=== PATIENT | male | born 1965 | race Caucasian/White ===

== ENCOUNTER 2020-03-04 12:22 | Inpatient (IN) | payer OTHER ==
[2020-03-04] MEDS ORDERED: Magnesium 2 GM/50 ML BAG (IN WATER) ONE (12:36)
[2020-03-04] MEDS ORDERED: methylPREDNISolone Sod Succ/PF 125 MG/2 ML VIAL ONE (12:36)
[2020-03-04 13:26] LABS: #Eosinphils 0.5 thou/uL (0.0-0.7); #Lymphocytes 1.7 thou/uL (1.20-3.40); #Monocytes 1.1 thou/uL (0.11-0.59); #Neutrophils 7.8 thou/uL (1.40-6.50); %Basophils 0.4 % (0.0-1.0); %Eosinophils 4.3 % (0.0-10.0); %Lymphocytes 15.1 % (21.0-51.0); %Neutrophils 70.3 % (42.0-75.0); Hemoglobin 15.6 g/dL (14.0-18.0); Mean Corpuscular HGB CONC 32.1 g/dL (32.0-36.0); Mean Corpuscular Hemoglobin 29.2 pg (27.0-31.0); Mean Corpuscular Volume 90.9 fL (78.0-98.0); Mean Platelet Volume 9.3 fL (7.4-10.4); Platelet Count 184 thou/uL (130-400); RBC Distribution Width 12.1 % (11.5-14.5); Red Blood Cell (RBC) Count 5.36 mill/uL (4.70-6.10); White Blood Cell (WBC) Count 11.2 thou/uL (4.8-10.8)
[2020-03-04 13:49] LABS: ALT (SGPT) 29 U/L (8-55); AST (SGOT) 44 U/L (5-34); Albumin 3.9 g/dL (3.5-5.0); Alkaline Phosphatase 84 U/L (40-110); Anion Gap 15 mmol/L (10-20); BUN (Urea Nitrogen) 13 mg/dL (8.4-25.7); Bilirubin, Total 0.4 mg/dL (0.2-1.2); CK (CPK) 105 U/L (30-200); Calc. Creatinine Clearance 0 mL/min (70-130); Carbon Dioxide 25 mmol/L (22-29); Chloride 101 mmol/L (98-107); Estimated GFR-MDRD Greater than 90; Globulin 4.5 g/dL (2.4-3.5); Glucose 114 mg/dL (70-105); Potassium 4.7 mmol/L (3.5-5.1); Protein, Total 8.4 g/dL (6.0-8.3); Sodium 136 mmol/L (136-145)
[2020-03-04] MEDS ORDERED: Albuterol 200 PUFF (6.7GM INHALER) ONE (14:02)
--- NOTE | 2020-03-04 14:23 | PDOC.FPRHP ---
- History of Present Illness Chief Complaint: Shortness of breath History of Present Illness: Pt is a 54 yo male with PMH significant for COPD, hx of pneumonia x 3, HTN, Hepatitis C who presented from the [facility] secondary to shortness of breath. The pt woke with a fever and what he suspected was a COPD exacerbation. He was given tylenol then transferred to the emergency department. He was tested for COVID 3 weeks ago and was negative but his bunk mate tested positive for COVID about 1 week ago. ED Course: 2g Magnesium sulfate, 125mg methylprednisolone, Proventil HFA, 2 inhalation - History PMHx: HTN, HepC, COPD, HLD PSHx: Right shoulder, b/l ankle and knee ortho repair from trauma FHx: HTN Social:30 pack year history, quit 4 years ago. 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 - Review of Systems General: reports: fever/chills ENT: denies: nasal congestion, rhinorrhea Respiratory: reports: cough, shortness of breath, exercise intolerance Cardiovascular: denies: chest pain, edema Gastrointestinal: denies: nausea, vomiting, diarrhea, constipation, GI bleeding Genitourinary: denies: dysuria, discharge Skin: denies: rashes, lesions Musculoskeletal: denies: pain, tenderness, swelling, arthritis/arthralgias Neurological: denies: seizure, weakness - Vital signs BP: 141/88, Pulse: 77, Resp: 28, Pain: 0, O2 sat: 92, Time: 03/04/2020 13:36. - Physical Exam Constitutional: NAD, awake, alert and oriented, well developed HEENT: normocephalic and atraumatic, PERRLA, EOMI Neck: supple, FROM, trachea midline Heart: RRR, normal S1/S2, no murmurs/rubs/gallops -Lungs: bilateral diffuse inspiratory crackles Abdomen: soft, non-tender, no masses/distention Musculoskeletal: ROM grossly normal Neurological: no focal deficit, CN II-XII intact Skin: no rash/lesions, good turgor, capillary refill <2 seconds -Heme/Lymphatic: multiple tattoos Psychiatric: normal mood and affect, good judgment and insight FMR H&P: Results - Labs Result Diagrams: 03/04/20 13:14 03/04/20 13:13 Lab results: WBC 11.2 thou/uL (4.8-10.8) H 03/04/20 13:14 Hgb 15.6 g/dL (14.0-18.0) 03/04/20 13:14 Hct 48.7 % (42.0-52.0) 03/04/20 13:14 MCV 90.9 fL (78.0-98.0) 03/04/20 13:14 Plt Count 184 thou/uL (130-400) 03/04/20 13:14 Neutrophils % 70.3 % (42.0-75.0) 03/04/20 13:14 Sodium 136 mmol/L (136-145) 03/04/20 13:13 Potassium 4.7 mmol/L (3.5-5.1) 03/04/20 13:13 Chloride 101 mmol/L (98-107) 03/04/20 13:13 Carbon Dioxide 25 mmol/L (22-29) 03/04/20 13:13 BUN 13 mg/dL (8.4-25.7) 03/04/20 13:13 Creatinine 0.87 mg/dL (0.7-1.3) 03/04/20 13:13 Glucose 114 mg/dL (70-105) H 03/04/20 13:13 Calcium 9.0 mg/dL (7.8-10.44) 03/04/20 13:13 Total Bilirubin 0.4 mg/dL (0.2-1.2) 03/04/20 13:13 AST 44 U/L (5-34) H 03/04/20 13:13 ALT 29 U/L (8-55) 03/04/20 13:13 Alkaline Phosphatase 84 U/L (40-110) 03/04/20 13:13 Creatine Kinase 105 U/L (30-200) 03/04/20 13:13 Serum Total Protein 8.4 g/dL (6.0-8.3) H 03/04/20 13:13 Albumin 3.9 g/dL (3.5-5.0) 03/04/20 13:13 - Radiology Interpretation Chest x-ray Status: image reviewed by me, report reviewed by me Additional comment: diffuse patchy infiltrates bilateral FMR H&P: A/P - Problem List (1) Person under investigation for COVID-19 Current Visit: Yes Status: Acute Code(s): Z20.828 - CONTACT W AND EXPOSURE TO OTH VIRAL COMMUNICABLE DISEASES (2) COPD exacerbation Current Visit: Yes Status: Acute Code(s): J44.1 - CHRONIC OBSTRUCTIVE PULMONARY DISEASE W (ACUTE) EXACERBATION (3) Hypertension Current Visit: Yes Status: Acute Code(s): I10 - ESSENTIAL (PRIMARY) HYPERTENSION (4) Hepatitis C Current Visit: Yes Status: Acute Code(s): B19.20 - UNSPECIFIED VIRAL HEPATITIS C WITHOUT HEPATIC COMA - Plan Pt is a 54 yo male here for worsening shortness of breath: Acute hypoxic respiratory failure 2/2 suspected COVID PNA - 70% O2 sat, requiring 6L N.C. - pending COVID swab - ABG: Mild respiratory acidosis: pH 7.3/pCO2 57.9/pO2 88.7. Breathing status stable, continue nasal cannula - Start azithromycin - Ddimer to trend - CXR with bilateral patchy infiltrates - COVID precautions - Admit to IMCU to monitor, will initiate convalescent plasma process - Pulm consulted COPD exacerbation possibly 2/2 COVID - continue steroids and ventolin - do not administer duonebs to decrease aerosolizing possible COVID cHTN - monitor Hep C - MD aware HLD - Stable VTE: lovenox 40mg BID Diet: HH Code Status: Full Dispo: admit to inpt IMCU Addendum - Attending - Attending Attestation Date/Time: 03/04/20 1620 I personally evaluated the patient and discussed the management with Dr. Arias. I agree with the History, Examination, Assessment and Plan documented above with any addition or exceptions noted below. Patient here with 2 day history of increasing malaise and increasing shortness of breath. Chronically dyspneic on exertion due to untreated COPD, but worsened. Tested for COVID 3 weeks ago and negative. Possible exposure in cellmate recently. He was hypoxic at [facility] that improved with 6L by NC. Currently sats are 95% and patient in no respiratory distress. On exam, he is sweaty, mild increased respiratory effort. Lungs with diffuse fine rales but difficult exam due to stethoscope quality, heart RRR, abdomen soft. CXR shows bilateral interstitial infiltrates, no focal consolidation. Labs show mild relative lymphopenia. D dimer with mild elevation. ABG ok on 6L. Patient will be admitted to IMCU for close respiratory monitoring. Likely COVID pneumonia with hypoxic resp failure but will confirm with repeat swab. Rocephin and Azithro. Consider tocilizumab if worsens. Daily CXR, Ddimer. Consider convalescent plasma. Will consult Pulm. Breathing treatments for COPD and consider steroids.
--- NOTE | 2020-03-04 15:33 | RAD ---
AP CHEST: 03/04/20 HISTORY: Dyspnea. COVID exposure. No comparison. Cardiomegaly. There are bilateral other diffuse hazy ground glass infiltrates seen. Ground glass opac ities are seen in the right upper and right lower lobe and there is diffuse ground glass opacity in t he peripheral left upper mid lung. There is evidence of bilateral effusions. Mild vascular congestion with cardiomegaly. IMPRESSION: Cardiomegaly with vascular congestion. There are bilateral ground glass infiltrates which could repre sent edema and/or viral pneumonitis. There are small bilateral effusions. Superimposed edema may also be present. POS: AGW
[2020-03-04 15:55] LABS: Analyzer IN Cardio ER; Base Excess (BEa) 3.5 mEq/L (-2.0 to +3.0); CO2 Tension 57.9 mmHg (35.0-45.0); Calcium, Ionized (arterial) 1.18 mmol/L (1.12-1.30); Carboxyhemoglobin (COHb) 0.5 gm% (0.0-3.0); Hemoglobin (Hb) 16.9 g/dL (14.0-18.0); O2 Tension (PaO2), arterial 88.7 mmHg (80.0-100.0); Potassium - ABG Lab 5.31 mmol/L (3.70-5.30); pH, Arterial 7.35 (7.35-7.45)
[2020-03-04 15:58] LABS: ALV-art Gradient -11.345 (0-20); Puncture Site RR
[2020-03-04] MEDS ORDERED: PROVENTIL INHALER 6.7 G (200 INHALATIONS) INH PRN (16:34)
[2020-03-04 17:12] VITALS: BMI 37.0
[2020-03-04] MEDS ORDERED: Azithromycin 250 MG TAB PO SCH (17:45)
[2020-03-04] MEDS ORDERED: cefTRIAXone\\ROCEPHIN 1 GM in Sodium Chloride 0.9% 100 ML IVPB SCH (18:00)
[2020-03-04] MEDS: Atorvastatin Calcium 40 MG TAB PO SCH (19:35)
[2020-03-04] MEDS: Enoxaparin Sodium 40 MG/0.4 ML SYRINGE SC SCH (19:36)
[2020-03-04] MEDS: Albuterol 200 PUFF (6.7GM INHALER) INH SCH ×2 (19:55→23:12)
[2020-03-05] MEDS: Albuterol 200 PUFF (6.7GM INHALER) INH SCH ×6 (02:30→22:30)
[2020-03-05 04:13] LABS: Band 8 % (5-11); Hemoglobin 14.7 g/dL (14.0-18.0); Lymphocytes 16 % (21-51); MDiff Complete? YES; Mean Corpuscular HGB CONC 32.2 g/dL (32.0-36.0); Mean Corpuscular Hemoglobin 29.1 pg (27.0-31.0); Mean Corpuscular Volume 90.4 fL (78.0-98.0); Mean Platelet Volume 8.8 fL (7.4-10.4); Metamyelocyte 1 % (0-0); Monocytes 10 % (0-10); Neutrophil 65 % (42-75); Platelet Count 182 thou/uL (130-400); Platelet Morphology Comment Appears Adequate; RBC Morphology Normal; Red Blood Cell (RBC) Count 5.07 mill/uL (4.70-6.10); White Blood Cell (WBC) Count 8.6 thou/uL (4.8-10.8)
[2020-03-05 04:15] LABS: ALT (SGPT) 28 U/L (8-55); AST (SGOT) 32 U/L (5-34); Albumin 3.7 g/dL (3.5-5.0); Alkaline Phosphatase 70 U/L (40-110); Anion Gap 11 mmol/L (10-20); BUN (Urea Nitrogen) 20 mg/dL (8.4-25.7); Bilirubin, Total 0.4 mg/dL (0.2-1.2); Calc. Creatinine Clearance 184 mL/min (70-130); Carbon Dioxide 27 mmol/L (22-29); Chloride 100 mmol/L (98-107); Estimated GFR-MDRD Greater than 90; Globulin 4.2 g/dL (2.4-3.5); Glucose 133 mg/dL (70-105); Potassium 4.6 mmol/L (3.5-5.1); Protein, Total 7.9 g/dL (6.0-8.3); Sodium 133 mmol/L (136-145)
[2020-03-05 05:45] LABS: Troponin I 0.036 ng/mL (< 0.028)
--- NOTE | 2020-03-05 06:39 | PDOC.FM ---
- Subjective Subjective: NAEO. Reports breathing improved. Coughed up sputum which helped. No swelling in legs. - Objective MAR Reviewed: Yes Vital Signs & Weight: Vital Signs (12 hours) Temp Pulse Ox 03/05/20 03:08 98.4 F 03/05/20 00:00 94 L 03/04/20 23:00 98.3 F 03/04/20 20:00 95 Weight Weight 117.208 kg Most Recent Monitor Data Heart Rate from ECG 85 NIBP 107/69 NIBP BP-Mean 81 Respiration from ECG 23 SpO2 90 Result Diagrams: 03/05/20 03:38 03/05/20 03:38 Phys Exam - Physical Examination Constitutional: NAD HEENT: PERRLA, moist MMs Neck: full ROM inspiratory crackles diffusely Cardiovascular: RRR, no significant murmur Gastrointestinal: soft, non-tender, no distention Musculoskeletal: no edema, pulses present Neurological: non-focal, moves all 4 limbs Dx/Plan (1) Person under investigation for COVID-19 Code(s): Z20.828 - CONTACT W AND EXPOSURE TO OTH VIRAL COMMUNICABLE DISEASES Status: Acute (2) COPD exacerbation Code(s): J44.1 - CHRONIC OBSTRUCTIVE PULMONARY DISEASE W (ACUTE) EXACERBATION Status: Acute (3) Hypertension Code(s): I10 - ESSENTIAL (PRIMARY) HYPERTENSION Status: Acute (4) Hepatitis C Code(s): B19.20 - UNSPECIFIED VIRAL HEPATITIS C WITHOUT HEPATIC COMA Status: Acute - Plan Plan: Pt is a 54 yo male admitted for AHRF 2/2 viral PNA, COVID pui Acute hypoxic respiratory failure 2/2 suspected COVID PNA - 3L N.C., COVID swab pending - Continue azithromycin, rocephin, steroids - Pulm following - Continue supportive care, wean O2 as tolerated. COPD exacerbation possibly 2/2 COVID - continue steroids and ventolin - abx Indeterminate troponin - No chest pain, EKG WNL, likely demand cHTN - Stable, monitor - Continue home meds Hep C - MD aware HLD - Stable, home med CHF -Stable -Continue home meds Hypothyroidism -Stable, home meds Bicuspid aortic valve -OP cardiology f/u VTE: lovenox 40mg BID Diet: HH Code Status: Full Addendum - Attending - Attending Attestation Date/Time: 03/05/20 1252 I personally evaluated the patient and discussed the management with Dr. Arias. I agree with the History, Examination, Assessment and Plan documented above with any addition or exceptions noted below.
[2020-03-05] MEDS ORDERED: Spironolactone 25 MG TAB PO SCH (08:00)
--- NOTE | 2020-03-05 08:10 | RAD ---
SINGLE VIEW OF THE CHEST: COMPARISON: 03/04/2020. HISTORY: Bilateral infiltrates. Suspecting COVID pneumonia. FINDINGS: A single view of the chest shows an enlarged but stable cardiomediastinal silhouette. There are stab le multifocal mixed alveolar/interstitial opacities. No pleural effusion is seen. IMPRESSION: Stable exam. POS: WENCESLAO
[2020-03-05] MEDS: Lisinopril 5 MG TAB PO SCH (08:20)
[2020-03-05] MEDS: Spironolactone 25 MG TAB PO SCH ×2 (08:20→17:20)
[2020-03-05] MEDS: predniSONE 20 MG TAB PO SCH (08:20)
[2020-03-05] MEDS: Furosemide 40 MG TAB PO SCH (08:20)
[2020-03-05] MEDS: Aspirin 81 mg Enteric Coated Tablet PO SCH (08:20)
[2020-03-05] MEDS: Azithromycin 250 MG TAB PO SCH (08:21)
[2020-03-05] MEDS: Enoxaparin Sodium 40 MG/0.4 ML SYRINGE SC SCH ×2 (08:21→20:17)
[2020-03-05] MEDS ORDERED: Furosemide 40 MG TAB PO SCH (09:00)
[2020-03-05] MEDS ORDERED: Enoxaparin Sodium 40 MG/0.4 ML SYRINGE SC SCH (09:00)
--- NOTE | 2020-03-05 09:07 | CON ---
DATE OF CONSULTATION: HISTORY OF PRESENT ILLNESS: Yann David is a 54-year-old gentleman, who presented with shortness of breath. [facility] is [facility]. He was tested several weeks ago, which is negative. Repeat coronavirus test pending. He, upon visiting me, said he wants to eat, he is not having much difficulty breathing. ADDITIONAL INFORMATION: PAST MEDICAL HISTORY: COPD, hypertension, hypothyroidism, hepatitis C, and obesity. PREVIOUS SURGERIES: Ankle, knee, shoulder, and some kind of valve problem. SOCIAL HISTORY: Previous tobacco abuse. HOME MEDICINE: 1. Aspirin. 2. Atorvastatin 40. 3. Flovent HFA. 4. Lasix 40. 5. Synthroid 100. 6. Lisinopril 5. 7. Inderal 20. 8. Spiriva inhaler. 9. Spironolactone. In the ER, he is noted to have sat of 89%, though he is much improved right now. Pulse 81, blood pressure 147/87. He was given magnesium 2 g, Solu-Medrol 125, two inhalers of Proventil. Still awaiting results of his COVID test. PHYSICAL EXAMINATION: GENERAL: He is awake, alert, responsive, appears to be in mild distress. VITAL SIGNS: Sats 92%, pulse 80, blood pressure , and respiratory rate 18. CHEST: No wheezing. No crackles. CARDIAC: Normal S1 and S2. No gallops. ABDOMEN: No masses. LABORATORY DATA: His chest x-ray shows bibasilar peripheral infiltrates. White count 11,000, hemoglobin and hematocrit 15 and 48, platelet count is normal. PO2 was 88, pCO2 of 53, pH 7.35 on room air. Lytes are normal. AST is 44. ASSESSMENT: 1. Chronic obstructive pulmonary disease exacerbation, pneumonia, rule out coronavirus. 2. Obesity, hepatitis C, hypertension. I agree with present treatment. If his serology is positive, we may initiate plasma, otherwise neb treatments, steroids, antibiotics. Consultation note, 70 minutes, 50% direct patient care. Job ID: [id number]
--- NOTE | 2020-03-05 09:31 | PRG ---
DATE OF SERVICE: 03/05/2020 SUBJECTIVE: Yann David, this morning, is awake, alert, and responsive. He is giving thumbs up sign. OBJECTIVE: VITAL SIGNS: Sats 93%, pulse 80, blood pressure 114/89, respirations 18. GENERAL: No shortness of breath or cough. CHEST: No wheezing or crackles. CARDIAC: Normal S1, S2. No gallops. ABDOMEN: No masses. ASSESSMENT AND PLAN: positive pneumonia, baseline chronic obstructive pulmonary disease. Zithromax, ceftriaxone, steroids, empiric antibiotics, neb treatments. We will follow. Job ID: [id number]
[2020-03-05 13:05] LABS: SARS-CoV-2 MS2 Positive; SARS-CoV-2 N Gene Positive; SARS-CoV-2 S Gene Positive; SARS-CoV-2 orf1ab Positive
[2020-03-05] MEDS: Atorvastatin Calcium 40 MG TAB PO SCH (20:16)
[2020-03-05] MEDS ORDERED: cefTRIAXone\\ROCEPHIN 1 GM in Sodium Chloride 0.9% 100 ML IVPB SCH (21:00)
[2020-03-06] MEDS: Albuterol 200 PUFF (6.7GM INHALER) INH SCH ×4 (02:30→10:30)
--- NOTE | 2020-03-06 06:01 | PDOC.FM ---
- Subjective Subjective: NAEO. Patient states breathing at rest improved how still SOB when getting up to commode-has been like this prior to admission. Denies fevers, chills. Some mild cough. - Objective MAR Reviewed: Yes Vital Signs & Weight: Vital Signs (12 hours) Temp Pulse Ox 03/05/20 20:00 98.1 F 91 L Weight Weight 117.208 kg Most Recent Monitor Data Heart Rate from ECG 76 NIBP 110/82 NIBP BP-Mean 91 Respiration from ECG 28 SpO2 94 I&O: 03/04/20 03/05/20 03/06/20 06:59 06:59 06:59 Intake Total 830 1660 Output Total 850 3300 Balance -20 -1640 Result Diagrams: 03/06/20 09:46 03/06/20 09:46 Phys Exam - Physical Examination Constitutional: NAD HEENT: PERRLA, moist MMs, sclera anicteric Neck: full ROM end expiratory wheezing Cardiovascular: RRR Gastrointestinal: soft, non-tender, no distention Musculoskeletal: no edema Neurological: non-focal, moves all 4 limbs Dx/Plan (1) Person under investigation for COVID-19 Code(s): Z20.828 - CONTACT W AND EXPOSURE TO OTH VIRAL COMMUNICABLE DISEASES Status: Acute (2) COPD exacerbation Code(s): J44.1 - CHRONIC OBSTRUCTIVE PULMONARY DISEASE W (ACUTE) EXACERBATION Status: Acute (3) Hypertension Code(s): I10 - ESSENTIAL (PRIMARY) HYPERTENSION Status: Acute (4) Hepatitis C Code(s): B19.20 - UNSPECIFIED VIRAL HEPATITIS C WITHOUT HEPATIC COMA Status: Acute - Plan Plan: Pt is a 54 yo male admitted for AHRF 2/2 COVID PNA Acute hypoxic respiratory failure 2/2 COVID19 PNA - 3L N.C., COVID + /12 - Continue azithromycin, rocephin, steroids - Pulm following - Albuterol/Ipratropium q4hr LUIS since wheezing still present - Continue supportive care, wean O2 as tolerated. COPD exacerbation 2/2 COVID19 - continue steroids and ventolin - azithro and rocephin Indeterminate troponin - No chest pain, EKG WNL, likely demand cHTN - Stable, monitor - Continue home meds Hep C - MD aware HLD - Stable, home med CHF -Stable -Continue home meds -Monitor fluid balance Hypothyroidism -Stable, home meds Bicuspid aortic valve -OP cardiology f/u VTE: lovenox 40mg BID Diet: HH Code Status: Full Addendum - Attending - Attending Attestation Date/Time: 03/06/20 3673 I personally evaluated the patient and discussed the management with Dr. Arias. I agree with the History, Examination, Assessment and Plan documented above with any addition or exceptions noted below. Patient overall stable from his COVID pneumonia. Attempt to wean down O2 support. He is stable for transfer to medical floor. Still working on transfer to [facility] as I anticipate he may be a slow wean from O2 therapy.
--- NOTE | 2020-03-06 08:26 | RAD ---
Exam: Chest one view HISTORY:COVID Comparison: 03/05/2020 FINDINGS: Cardiac silhouette: Normal Aorta: Unremarkable Pulmonary vessels: Normal Costophrenic angles: Clear LUNGS: Stable opacification of the lung parenchyma Pneumothorax: None Osseous abnormalities: None IMPRESSION: No significant interval change
[2020-03-06] MEDS: predniSONE 20 MG TAB PO SCH (08:37)
[2020-03-06] MEDS: Spironolactone 25 MG TAB PO SCH (08:38)
[2020-03-06] MEDS: Aspirin 81 mg Enteric Coated Tablet PO SCH (08:38)
[2020-03-06] MEDS: Furosemide 40 MG TAB PO SCH (08:38)
[2020-03-06] MEDS: Azithromycin 250 MG TAB PO SCH (08:38)
[2020-03-06] MEDS: Enoxaparin Sodium 40 MG/0.4 ML SYRINGE SC SCH (08:39)
[2020-03-06] MEDS: Lisinopril 5 MG TAB PO SCH (08:41)
[2020-03-06] MEDS: Ipratropium Oral Inhaler INH SCH ×2 (09:40→11:00)
[2020-03-06 10:14] LABS: #Eosinphils 0.1 thou/uL (0.0-0.7); #Monocytes 0.9 thou/uL (0.11-0.59); #Neutrophils 11.4 thou/uL (1.40-6.50); %Basophils 0.1 % (0.0-1.0); %Eosinophils 0.5 % (0.0-10.0); %Lymphocytes 24.3 % (21.0-51.0); %Monocytes 5.5 % (0.0-10.0); %Neutrophils 69.6 % (42.0-75.0); Mean Corpuscular HGB CONC 32.5 g/dL (32.0-36.0); Mean Corpuscular Hemoglobin 29.9 pg (27.0-31.0); Mean Corpuscular Volume 92.2 fL (78.0-98.0); Mean Platelet Volume 9.5 fL (7.4-10.4); Platelet Count 194 thou/uL (130-400); RBC Distribution Width 12.2 % (11.5-14.5); Red Blood Cell (RBC) Count 5.34 mill/uL (4.70-6.10); White Blood Cell (WBC) Count 16.4 thou/uL (4.8-10.8)
[2020-03-06 10:37] LABS: Anion Gap 13 mmol/L (10-20); BUN (Urea Nitrogen) 16 mg/dL (8.4-25.7); Calc. Creatinine Clearance 169 mL/min (70-130); Carbon Dioxide 29 mmol/L (22-29); Chloride 100 mmol/L (98-107); Estimated GFR-MDRD Greater than 90; Glucose 126 mg/dL (70-105); Potassium 3.9 mmol/L (3.5-5.1); Sodium 138 mmol/L (136-145)
[2020-03-06 11:38] VITALS: TEMP 98
--- NOTE | 2020-03-06 14:01 | DIS ---
DATE OF ADMISSION: 03/04/2020 DATE OF DISCHARGE: 03/06/2020 ADMITTING ATTENDING: Michele Polanco MD DISCHARGE ATTENDING: Michele Polanco MD RESIDENT: Maria Dolores Arias, PGY-2. CONSULT: Pulmonology, Dr. Cifuentes. PROCEDURES/IMAGING/PERTINENT LABS: 1. Chest x-ray, bilateral infiltrates versus effusion. 2. COVID-19 positive on 03/05/2020. PRIMARY DIAGNOSES: 1. Acute hypoxic respiratory failure secondary to COVID pneumonia, requiring nasal cannula supplementation. 2. COVID-19 positive. 3. Chronic obstructive pulmonary disease exacerbation secondary to above. SECONDARY DIAGNOSES: 1. Congestive heart failure with REF. 2. Hepatitis C. 3. Hypertension. 4. Hyperlipidemia. 5. Chronic obstructive pulmonary disease. DISCHARGE MEDICATIONS: 1. Proventil HFA two puffs inhaled q.4 hours schedule. 2. Propranolol 20 MG p.o.b. 3. Rocephin IV daily. 4. Lovenox 40 mg subcu b.i.d. 5. Prednisone 40 mg p.o. q.a.m. for 4 more days. 6. Spiriva 18 mcg inhaled daily. 7. Aspirin 81 mg p.o. daily. 8. Atorvastatin 40 mg p.o. daily. 9. Fluticasone 110 mcg inhaled b.i.d. 10. Lasix 40 mg p.o. daily. 11. Ibuprofen 600 mg p.o. b.i.d. 12. Synthroid 100 mcg p.o. daily. 13. Lisinopril 5 mg p.o. daily. 14. Spironolactone 25 mg p.o. b.i.d. 15. ProAir 2 puffs inhaled q.6 hours p.r.n. short of breath or wheezing. Hold temporarily propranolol 10 mg p.o. b.i.d. since in COPD exacerbation. Discontinued medications: None. HISTORY/HOSPITAL COURSE: Mr. David is a 54-year-old pleasant male, currently an inmate, who presented to the ER for acute hypoxic respiratory failure requiring nasal cannula oxygen. He had been dyspneic for the past several days, then developed a subjective fever and chills on day of admission. He was admitted to [facility] with +COVID test. Respiratory insufficiency likely due to COPD exacerbation from COVID PNA. He was started on breathing treatments, antibiotics, steroids in which he has much improved since day of admission. No signs of fluid overload or heart failure. He endorsed he had not been taking his COPD medications. It is important to continue this upon discharge. The patient is still dyspneic with exertion and so he will need to continue down titration of supplemental oxygen and might need to be on it assisted. It is important that he does see Cardiology outpatient since he told me he had a bicuspid aortic valve that has never been evaluated. DISPOSITION: Stable for transfer. DISCHARGE INSTRUCTIONS: 1. Location: [facility]. 2. Diet: Heart healthy, fluid restricted. 3. Activity: Ad josef as tolerated. 4. Followup: a. Please follow up. Continue COPD medications. b. Please follow up with outpatient gravure press set up operator to have bicuspid aortic valve assessed. c. Please follow up to continue to receive 2.3 L oxygen. d. Please follow up with administering convalescent plasma since patient would be good candidate If you have any further questions, please feel free to contact Dr. Maria Dolores Arias at [facility]. Job ID: [id number] [facility]OSPITALEdward
--- NOTE | 2020-03-09 05:47 | PQF ---
KAYLA ROSAS JASON MD *eric* [id number] CLINICAL DOCUMENTATION CLARIFICATION FORM: POST DISCHARGE Addendum to original discharge summary date: ____ Late entry note date: __ DATE: 03/09/2020 ATTN: Michele Constantino Please exercise your independent, professional judgment in responding to the clarification form. Clinical indicators are provided on the bottom of this form for your review Please check appropriate box(es): [ ] Sepsis [ ] SIRS due to non-infectious process (please specify etiology) [ ] with organ dysfunction [ ] without organ dysfunction [ ] Severe sepsis with acute organ dysfunction of: (Examples: respiratory failure, encephalopathy, acute kidney failure, other) [ ] Septic Shock [ X ] Localized infection without sepsis [ ] Other diagnosis [ ] Unable to determine In addition, please specify: Present on Admission (POA): [ X ] Yes [ ] No [ ] Unable to determine For continuity of documentation, please document condition throughout progress notes and discharge summary. Thank You. CLINICAL INDICATORS - SIGNS / SYMPTOMS / LABS DS 03/06 "Acute hypoxic respiratory failure secondary to Covid pneumonia" Vital Signs Temp: 03/04=99.4 03/05=98.4 Vital Signs Pulse: 03/06=70 Vital Signs Respi: 03/06=25 Vital Signs BP: 03/05=99/56,106/55 03/06=91/54,83/64 Labs WBC: 03/04=11.2 03/06=16.4 RISK FACTORS COPD-HP 03/04 HTN-HP 03/04 Hepatitis C-HP 03/04 Former Smoker-HP 03/04 Obesity-Consult 03/04 CHF-PN 03/05 Covid19 infection-DS 03/06 PNA-DS 03/06 TREATMENTS: Chest Xray-Collected 03/04 Oxygen via NC-HP 03/04 Rocephin 1gm IV-MAR 03/05 (This form is maintained as a part of the permanent medical record) 2014 [employer]. All Rights Reserved [email or web address]
--- NOTE | 2020-03-13 10:56 | EKG ---
Test Reason : Blood Pressure : / mmHG Vent. Rate : 082 BPM Atrial Rate : 082 BPM P-R Int : 146 ms QRS Dur : 078 ms QT Int : 386 ms P-R-T Axes : 039 002 022 degrees QTc Int : 450 ms Normal sinus rhythm Normal ECG Confirmed by EILEEN PERKINS DO ([id number]), editorial intern KACEY COTTO ([id number]) on 03/13/2020 10:56:32 AM Referred By: Confirmed By:EILEEN PERKINS DO
== END 2020-03-06 14:01 | disposition short-term general hospital (02) | DRG 177 ==
LOC: ERS 12:22 → IMCU/EMU 14:22
PROVIDERS: ADMIT Student in an Organized Health Care Education/Training Program; ATTEND Student in an Organized Health Care Education/Training Program
DX: U07.1 COVID-19 (principal); J96.01 Acute respiratory failure with hypoxia; J12.89 Other viral pneumonia; J44.1 Chronic obstructive pulmonary disease with (acute) exacerbation; B17.10 Acute hepatitis C without hepatic coma; J44.0 Chronic obstructive pulmonary disease with (acute) lower respiratory infection; I50.22 Chronic systolic (congestive) heart failure; Q23.1 Congenital insufficiency of aortic valve; E78.5 Hyperlipidemia, unspecified; E03.9 Hypothyroidism, unspecified; E66.9 Obesity, unspecified; I11.0 Hypertensive heart disease with heart failure; Z87.01 Personal history of pneumonia (recurrent); Z87.891 Personal history of nicotine dependence; Z68.37 Body mass index [BMI] 37.0-37.9, adult; Z79.82 Long term (current) use of aspirin; Z79.51 Long term (current) use of inhaled steroids; Z79.899 Other long term (current) drug therapy
CPT/HCPCS: 36415; 71045; 80048; 80053; 82550; 82805; 83880; 84145; 84443; 84484; 85007; 85025; 85027; 85379; 86850; 86900; 86901; 87635; 93005; 94664; 96365; 96375; J0696; J1650; J2930; J3475; J3490; J7512; U0003